=== PATIENT | female | born 1940 | race Hispanic/Latino ===

== ENCOUNTER 2021-02-19 12:00 | Emergency (ER) | payer MEDICARE, OTHER ==
[~2021-02-19] VITALS: Ht 157.5 cm; Wt 63.0 kg
[~2021-02-19 12:00] MED LIST: ALEVE PO; DILTIAZEM ER240 M1 PO; DILTIAZEM PO; IBUPROFEN200 MG PO; LOSARTAN POTAS100 MG PO; OMEPRAZOLE40 MG PO
[2021-02-19] MEDS ORDERED: SUCRALFATE1 GM PO (12:13)
[2021-02-19] MEDS ORDERED: CLONIDINE HCL 0.1 MG TAB PO ONE (12:30)
[2021-02-19 13:02] LABS: BASOPHILS # (AUTO) 0.1 (0.0-0.1); BASOPHILS % 1.1 % (0.0-1.0); EOSINOPHILS # (AUTO) 0.2 (0.0-0.4); HEMATOCRIT 37.4 % (34.2-44.1); HEMOGLOBIN 11.9 g/dL (12.0-16.0); LYMPHOCYTES # (AUTO) 2.2 (1.0-3.2); LYMPHOCYTES % 30.2 % (18.0-39.1); MEAN CORPUSCULAR HEMOGLOBIN 28.9 pg (28-32); MEAN CORPUSCULAR HGB CONC 31.8 g/dL (31-35); MEAN CORPUSCULAR VOLUME 90.8 fL (81-99); MONOCYTES # (AUTO) 0.6 (0.2-0.8); MONOCYTES % 7.8 % (4.4-11.3); NEUTROPHILS # (AUTO) 4.3 (2.1-6.9); NEUTROPHILS % 58.6 % (38.7-80.0); PLATELET COUNT 304 x10e3/uL (140-360); RED BLOOD COUNT 4.12 x10e6/uL (3.6-5.1); RED CELL DISTRIBUTION WIDTH 13.2 % (11.7-14.4)
[2021-02-19 13:24] LABS: ALBUMIN 4.3 g/dL (3.5-5.0); ALBUMIN/GLOBULIN RATIO 1.4 (0.8-2.0); ANION GAP 14.7 mmol/L (8-16); CALCIUM 9.3 mg/dL (8.4-10.2); CREATININE, SERUM 0.8 mg/dL (0.57-1.11); POTASSIUM 3.7 mmol/L (3.5-5.1)
[2021-02-19 13:31] LABS: CREATINE KINASE MB 0.7 ng/mL (0-5.0)
[2021-02-19 13:58] LABS: INR 0.97; PROTHROMBIN TIME 13.7 seconds (11.9-14.5)
[2021-02-19 13:59] LABS: PARTIAL THROMBOPLASTIN TIME 31.3 seconds (23.8-35.5)
[2021-02-19] MEDS ORDERED: MECLIZINE HCL12.5 MG PO (14:10)
[2021-02-19 14:13] VITALS: BP 157/55
== END 2021-02-19 14:31 | disposition home or self-care (01) ==
LOC: ER 12:25
DX: I16.0 Hypertensive urgency (principal); R42 Dizziness and giddiness; I10 Essential (primary) hypertension
CPT/HCPCS: 36415; 70450; 71045; 80053; 82550; 82553; 84484; 85025; 85610; 85730; 93005; 99284

== ENCOUNTER 2021-07-25 13:09 | Emergency (ER) | payer MEDICARE ==
[~2021-07-25] VITALS: Ht 157.5 cm; Wt 63.0 kg
[~2021-07-25 13:09] MED LIST changes: +MECLIZINE HCL12.5 MG PO; +SUCRALFATE1 GM PO
[2021-07-25] MEDS ORDERED: ACETAMINOPHEN 325 MG TAB ONE (13:38)
[2021-07-25] MEDS ORDERED: ACETAMINOPHEN 325 MG TAB PO ONE (14:00)
== END 2021-07-25 14:57 | disposition home or self-care (01) ==
LOC: ER 13:16
DX: R50.9 Fever, unspecified (principal); J02.9 Acute pharyngitis, unspecified; R05.9 Cough, unspecified; I10 Essential (primary) hypertension; K21.9 Gastro-esophageal reflux disease without esophagitis; Z20.822 Contact with and (suspected) exposure to COVID-19
CPT/HCPCS: 71045; 83518; 87070; 99284; U0002

== ENCOUNTER 2022-01-22 10:06 | Emergency (ER) | payer MEDICARE ==
[~2022-01-22] VITALS: Ht 157.5 cm; Wt 63.0 kg
== END 2022-01-22 18:07 | disposition home or self-care (01) ==
LOC: ER 10:19
DX: K21.00 Gastro-esophageal reflux disease with esophagitis, without bleeding (principal); I10 Essential (primary) hypertension
CPT/HCPCS: 99283

== ENCOUNTER 2024-11-13 08:19 | Emergency (ER) | payer MEDICARE ==
[~2024-11-13] VITALS: Ht 157.5 cm; Wt 61.7 kg
[~2024-11-13 08:19] MED LIST changes: +3 BP MEDS PO; +ANTACID300 MG PO; +ATORVASTATIN CA20 MG PO; +CLONIDINE HCL0.1 MG PO; +FAMOTIDINE20 MG PO; +NEURONTIN300 MG PO; +NEXIUM40 MG PO; +TAMIFLU75 MG PO
[2024-11-13 08:29] VITALS: PULSE 91; RESP 17; TEMP 98.2; O2SAT 98
[2024-11-13] MEDS ORDERED: ZYRTEC10 MG PO (08:53)
[2024-11-13] MEDS ORDERED: OMEPRAZOLE40 MG PO (08:54)
== END 2024-11-13 09:23 | disposition home or self-care (01) ==
LOC: ER 08:29
DX: J02.9 Acute pharyngitis, unspecified (principal); I10 Essential (primary) hypertension; K21.9 Gastro-esophageal reflux disease without esophagitis; M19.90 Unspecified osteoarthritis, unspecified site
CPT/HCPCS: 99282